=== PATIENT | female | born 1960 | race Caucasian/White ===

== ENCOUNTER 2023-02-21 21:30 | Emergency (ER) | payer MEDICAID ==
[~2023-02-21] VITALS: Ht 152.4 cm; Wt 72.6 kg
[2023-02-21 22:30] VITALS: BP 148/69
--- NOTE | 2023-02-22 00:21 | NUR ---
PT TAKEN TO BED 4
--- NOTE | 2023-02-22 00:43 | NUR ---
Dr. Stevens examining patient.
[2023-02-22] MEDS ORDERED: KETOROLAC 30 MG/ML VIAL IM ONE (00:50)
[2023-02-22] MEDS ORDERED: ALUMINUM HYD/MAG/SIMETHICONE 30 ML UDC PO ONE (00:50)
--- NOTE | 2023-02-22 01:09 | NUR ---
PT RETURN FROM CT
[2023-02-22 01:21] LABS: BASOPHILS # (AUTO) 0.1 K/uL (0.00-0.22); BASOPHILS % (AUTO) 0.8 % (0.0-2.0); EOSINOPHILS # (AUTO) 0.1 K/uL (0-0.4); HEMATOCRIT 39.9 % (36-48); HEMOGLOBIN 13.4 g/dL (12.0-16.0); LYMPHOCYTES # (AUTO) 1.8 K/uL (2.5-16.5); LYMPHOCYTES % (AUTO) 21.3 % (20.5-51.1); MEAN CORPUSCULAR HEMOGLOBIN 30 pg (27-31); MEAN CORPUSCULAR HGB CONC 34 g/dL (33-37); MEAN CORPUSCULAR VOLUME 88.7 fL (80-94); MONOCYTES # (AUTO) 0.5 K/uL (0.8-1.0); MONOCYTES % (AUTO) 5.9 % (1.7-9.3); PLATELET COUNT (AUTO) 267 K/uL (140-450); RED CELL DISTRIBUTION WIDTH 14.3 % (11.6-13.7); WHITE BLOOD COUNT (AUTO) 8.4 K/uL (4.8-10.8)
[2023-02-22 01:22] LABS: APPEARANCE,URINE CLEAR (CLEAR); BILIRUBIN,URINE NEGATIVE (NEGATIVE); BLOOD, URINE 1+ (NEGATIVE); COLOR,URINE YELLOW (YELLOW); LEUKOCYTE ESTERASE ,URINE 1+ (NEGATIVE); NITRITE, URINE NEGATIVE (NEGATIVE); PH,URINE 6.5 (5.0-9.0); UGLUCOSE NEGATIVE (NEGATIVE)
[2023-02-22 01:32] LABS: RBC,URINE 0-5 /HPF (0-5)
[2023-02-22 01:46] LABS: ALBUMIN 4.1 g/dL (3.4-5.0); ANION GAP 10.1 (8-16); CARBON DIOXIDE 32.5 mmol/L (21-32); CREATININE 0.9 mg/dL (0.6-1.3); POTASSIUM 3.6 mmol/L (3.5-5.1); TOTAL BILIRUBIN 0.5 mg/dL (0.0-1.0)
--- NOTE | 2023-02-22 02:46 | NUR ---
Dr. Stevens examining patient.
[2023-02-22] MEDS ORDERED: MAG355OR2 PO (02:50)
[2023-02-22] MEDS ORDERED: AMOX1TAB8 PO (02:50)
[2023-02-22] MEDS ORDERED: IBUP-1842 PO (02:50)
[2023-02-22 03:13] VITALS: BP 148/69
--- NOTE | 2023-02-22 03:16 | NUR ---
Patient discharged with v/s stable. Written and verbal after care instructions given and explained. Patient alert, oriented and verbalized understanding of instructions. Ambulatory with steady gait. All questions addressed prior to discharge. ID band removed. Patient advised to follow up with PMD. Rx of AMOXICILLIN, IBUPROFEN, MAALOX given. Patient educated on indication of medication including possible reaction and side effects. Opportunity to ask questions provided and answered.
== END 2023-02-22 03:16 | disposition home or self-care (01) ==
LOC: MED 21:30
DX: N39.0 Urinary tract infection, site not specified (principal); I10 Essential (primary) hypertension; Z88.2 Allergy status to sulfonamides; Z88.8 Allergy status to other drugs, medicaments and biological substances; Z79.899 Other long term (current) drug therapy
CPT/HCPCS: 36415; 74176; 80053; 81001; 83690; 85025; 87086; 96372; 99285; J1885

== ENCOUNTER 2023-05-03 10:46 | Day surgery (SDC) | payer MEDICAID ==
[~2023-05-03] VITALS: Ht 154.9 cm; Wt 75.3 kg
[~2023-05-03 10:46] MED LIST: AMOX1TAB8 PO; IBUP-1842 PO; MAG355OR2 PO
[2023-05-03] MEDS ORDERED: fentaNYL citrate 0.05 MG/ML VIAL ONE (12:26)
[2023-05-03] MEDS ORDERED: LIDOCAINE 2% 100 MG/5 ML UJET TP ONE (12:27)
[2023-05-03] MEDS ORDERED: fentaNYL citrate 0.05 MG/ML VIAL IVP ONE (13:40)
== END 2023-05-03 14:02 | disposition home or self-care (01) ==
LOC: MDS 10:46 → MMU 10:48 → MDS 14:02
PROVIDERS: ATTEND Internal Medicine Gastroenterology
DX: R10.31 Right lower quadrant pain (principal); I10 Essential (primary) hypertension; Z88.1 Allergy status to other antibiotic agents; Z79.899 Other long term (current) drug therapy
CPT/HCPCS: 45378; J3010